=== PATIENT | female | born 2000 | race Caucasian/White ===

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

== ENCOUNTER 2018-08-10 20:05 | Emergency (ER) | payer OTHER ==
[2018-08-10] MEDS ORDERED: Fluorescein 1 mg Ophthalmic Strip OD ONE (20:45)
[2018-08-10] MEDS ORDERED: Tetracaine 0.5% Ophth 2 ML BOTTLE OD ONE (20:45)
[2018-08-10] MEDS ORDERED: Tetracaine 0.5% Ophth (OR ONLY) ONE (21:01)
[2018-08-10] MEDS ORDERED: Fluorescein 1 mg Ophthalmic Strip ONE (21:01)
--- NOTE | 2018-08-10 21:04 | C.PDOC ---
History Of Present Illness 18 year old female with no PMH presents to ED with right eye pain and redness x 2 weeks. Patient says she was seen at an outside ED twice since symptom onset, has been using cipro eye drops with no relief. Patient complains of photophobia. States her pain has been worsening since onset. Denies fever, eye trauma, vision change, left eye symptoms, or contact lens use. Time Seen by Provider: 08/10/18 20:27 Chief Complaint (Nursing): Eye Problem History Per: Patient History/Exam Limitations: no limitations Onset/Duration Of Symptoms: Days Current Symptoms Are (Timing): Worse Injury To Eye?: No Past Medical History Vital Signs: Last Vital Signs Temp 98.9 F 08/10/18 20:15 Pulse 87 08/10/18 20:15 Resp 17 08/10/18 20:15 BP 108/77 08/10/18 20:15 Pulse Ox 98 08/10/18 20:15 Primary Care Provider: FAMILY PROVIDER,NO - Medical History PMH: Asthma Family History: States: Unknown Family Hx - Social History Hx Tobacco Use: No Hx Alcohol Use: No Hx Substance Use: No - Immunization History Hx Tetanus Toxoid Vaccination: Yes Hx Influenza Vaccination: Yes Hx Pneumococcal Vaccination: No Review Of Systems Except As Marked, All Systems Reviewed And Found Negative. Constitutional: Negative for: Fever Eyes: Positive for: Pain, Conjunctivae Inflammation, Redness. Negative for: Vision Change, Eyelid Inflammation Physical Exam - Physical Exam Appears: Non-toxic, Toxic Skin: Warm, Dry Head: Atraumatic, Normacephalic Eye(s): bilateral: PERRL, EOMI, right: Other (Right sclera injected. No abrasions/ulcerations noted on fluoroscein stain), left: Normal Inspection Oral Mucosa: Moist Chest: Symmetrical Neurological/Psych: Oriented x3, Normal Speech Gait: Steady ED Course And Treatment O2 Sat by Pulse Oximetry: 98 Medical Decision Making Medical Decision Making: Eye examined with fluoroscein dye, no abrasions or ulcerations noted. Vision unaffected. Will discharge with antibiotic/steroid drops and ophtho follow up. Given duration of symptoms, importance of urgent follow up stressed to patient Disposition Counseled Patient/Family Regarding: Studies Performed, Diagnosis, Need For Followup, Rx Given - Disposition Referrals: Gumaro Grover MD [Staff Provider] - Disposition: HOME/ ROUTINE Disposition Time: 21:06 Condition: GOOD Additional Instructions: Please follow up with Ophtho in 2-3 days Prescriptions: Neomycin/Polymyxin B/Dexametha [[id number] Eye Drop] 1 drop OD Q4 #1 bot Instructions: Conjunctivitis ([place]) (DC) Forms: [employer] (Albanian) - Clinical Impression Clinical Impression: Inflammation of right eye - PA / TELEPHONE MESSENGER / Resident Statement MD/DO has reviewed & agrees with the documentation as recorded.
[2018-08-10 21:44] VITALS: BP 103/67; PULSE 81; RESP 16; TEMP 98.3; O2SAT 100
== END 2018-08-10 21:46 | disposition home or self-care (01) ==
LOC: C.ER 20:05
DX: H57.89 Other specified disorders of eye and adnexa (principal)